=== PATIENT | female | born 1945 | race African-American/Black ===

== ENCOUNTER 2016-06-06 11:02 | Emergency (ER) | payer MEDICARE ==
[~2016-06-06] VITALS: Ht 152.4 cm; Wt 78.5 kg
[~2016-06-06 11:02] MED LIST: ALBU2.5V5 IH; CHOL10003 PO; HYDR-209 PO; LOSA50TA6 PO; METO100T11 PO; MULT-246 PO; RANI150T2 PO; SERT100T PO; tumeric; vit d PO
--- NOTE | 2016-06-06 12:23 | PHYS DOC ---
Past Medical History Past Medical History: Arthritis, COPD, Depression, GERD, Hypertension, Other Additional Past Medical Histor: Gout Past Surgical History: No Surgical History Alcohol Use: None Drug Use: None Adult General Chief Complaint Chief Complaint: SHORTNESS OF BREATH HPI HPI Patient is a 70 year old female who presents with shortness of breath and bilateral foot pain. Patient reports she has been having increasing shortness of breath over the past 3-4 weeks. She just Back from vacation to [place] and had run out of her breathing treatments while she was there. No chest discomfort. She also reports bilateral foot pain for the past 2 or 3 weeks, L> R. no trauma or other inciting event. She has taken hydrocodone and naproxen for pain with partial improvement. She also reports cough. No fever. No other acute complaints. Review of Systems Review of Systems Constitutional: Denies fever or chills Eyes: Denies change in visual acuity or eye pain HENT: Denies nasal congestion or sore throat Respiratory: Cough, shortness of breath Cardiovascular: Denies chest pain GI: Denies abdominal pain, nausea, vomiting, bloody stools or diarrhea : Denies dysuria or hematuria Musculoskeletal: B/l foot pain Integument: Denies rash or skin lesions Neurologic: Denies headache, focal weakness or sensory changes Current Medications Current Medications Current Medications Medications (Trade) Dose Ordered Sig/Hugo Start Time Stop Time Status Last Admin Dose Admin Albuterol/ Ipratropium (Duoneb) 6 ml 1X ONCE 06/06/16 12:30 06/06/16 12:31 DC 06/06/16 12:47 6 ML Prednisone (Prednisone) 60 mg 1X ONCE 06/06/16 12:30 06/06/16 12:31 DC 06/06/16 12:50 60 MG Allergies Allergies Allergies Coded Allergies Type Severity Reaction Last Updated Verified allopurinol Allergy Intermediate 06/06/16 Yes azithromycin Allergy Intermediate 03/15/16 Yes Physical Exam Physical Exam Constitutional: Well developed, well nourished, no acute distress, non-toxic appearance HENT: Normocephalic, atraumatic, bilateral external ears normal Eyes: EOMI, conjunctiva normal, no discharge Neck: Normal range of motion, no stridor Cardiovascular: Heart rate normal, regular rhythm, no murmur Lungs & Thorax: Tight, diffuse expiratory wheezing Abdomen: Bowel sounds normal, soft, non-distended, no TTP Skin: Warm, dry, no erythema, no rash Extremities: L foot mildly swollen compared to R, mildly warm to touch, no erythema; 2+ DP pulse, motor function and sensation to light touch fully intact Neurologic: Alert and oriented X 3, no gross deficits noted Current Patient Data Vital Signs Vital Signs Date Time Temp Pulse Resp B/P Pulse Ox O2 Delivery O2 Flow Rate FiO2 06/06/16 15:00 92 21 151/66 95 Nasal Cannula 3 06/06/16 11:20 98.3 98.3 Lab Values Laboratory Tests Test 06/06/16 11:35 White Blood Count 7.1x10^3/uL (4.0-11.0) Red Blood Count 4.22x10^6/uL (3.50-5.40) Hemoglobin 12.2g/dL (12.0-15.5) Hematocrit 38.4% (36.0-47.0) Mean Corpuscular Volume 91fL (79-100) Mean Corpuscular Hemoglobin 29pg (25-35) Mean Corpuscular Hemoglobin Concent 32g/dL (31-37) Red Cell Distribution Width 14.9% (11.5-14.5) H Platelet Count 178x10^3/uL (140-400) Neutrophils (%) (Auto) 60% (31-73) Lymphocytes (%) (Auto) 11% (24-48) L Monocytes (%) (Auto) 7% (0-9) Eosinophils (%) (Auto) 21% (0-3) H Basophils (%) (Auto) 1% (0-3) Neutrophils # (Auto) 4.3x10^3uL (1.8-7.7) Lymphocytes # (Auto) 0.7x10^3/uL (1.0-4.8) L Monocytes # (Auto) 0.5x10^3/uL (0.0-1.1) Eosinophils # (Auto) 1.5x10^3/uL (0.0-0.7) H Basophils # (Auto) 0.1x10^3/uL (0.0-0.2) Segmented Neutrophils % 58% (35-66) Band Neutrophils % 1% (0-9) Lymphocytes % 7% (24-48) L Monocytes % 11% (0-10) H Eosinophils % 23% (0-5) H Platelet Estimate Adequate (ADEQUATE) Sodium Level 145mmol/L (136-145) Potassium Level 4.4mmol/L (3.5-5.1) Chloride Level 109mmol/L (98-107) H Carbon Dioxide Level 29mmol/L (21-32) Anion Gap 7 (6-14) Blood Urea Nitrogen 17mg/dL (7-20) Creatinine 0.9mg/dL (0.6-1.0) Estimated GFR (Cockcroft-Gault) 74.7 Glucose Level 90mg/dL (70-99) Calcium Level 8.9mg/dL (8.5-10.1) Troponin I Quantitative < 0.017ng/mL (0.000-0.055) Laboratory Tests 06/06/16 11:35 Laboratory Tests 06/06/16 11:35 EKG EKG EKG (my read): Sinus rhythm, rate 65, borderline LAD, intervals wnl, no acute ischemic changes Radiology/Procedures Radiology/Procedures X-ray L foot: No acute or significant bony finding is seen. CXR: IMPRESSION: No acute or focal process. No significant change Course & Med Decision Making Course & Med Decision Making Pertinent Labs and Imaging studies reviewed. (See chart for details) Patient is 70-year-old female who presents with shortness of breath and bilateral foot pain. Shortness of breath apparent COPD exacerbation based on physical exam. Steroids and breathing treatments ordered. Suspect left foot pain is due to gout, as patient has history of this. Will obtain EKG, chest x- ray, left foot x-ray, labs to evaluate. Labs largely unremarkable. Troponin within normal limits. Discussed results with patient, who says she is feeling much better at this time. Her lung sounds have improved, although she did still has some faint wheezing. Discussed possible admission with patient; she is insistent upon going home. She already has a follow up appointment with Dr. Raymundo scheduled for tomorrow. I discussed my concerns, patient was still like to go home. As she has close follow-up already scheduled for tomorrow, we will send her home with strict return precautions. Patient agrees to return immediately if she gets any worse. Discharged with prescription for prednisone burst, Celebrex, [place] for pain. Dragon Disclaimer Dragon Disclaimer This electronic medical record was generated, in whole or in part, using a voice recognition dictation system. Departure Departure Impression: Primary Impression: COPD exacerbation Additional Impression: Foot pain, left Disposition: 01 HOME, SELF-CARE Condition: IMPROVED Referrals: MARIA A RAYMUNDO MD (PCP) Patient Instructions: Chronic Obstructive Pulmonary Disease Exacerbation, Gout Additional Instructions: Thank you for allowing us to provide care today in the Emergency Department. Take the provided medication as directed. Use caution after taking the pain medication as it can make you drowsy. Keep your follow up appointment with your primary care doctor tomorrow. Return immediately to the Emergency Department if you develop any new or concerning symptoms. Scripts Celecoxib (Celebrex)100 Mg [id number] Mg PO BID #14 CAP Ref 0 Prov:VEGA BURNHAM MD 06/06/16 Hydrocodone/Apap 5-325 ([place] 5-325 Tablet)1 Each Tablet1 Tab PO PRN Q6HRS PRN PAIN #20 TAB Ref 0 Prov:VEGA BURNHAM MD 06/06/16 Prednisone 20 Mg [id number] Mg PO DAILY 4 Days start taking on 06/07/16 Prov:VEGA BURNHAM MD 06/06/16 Problem Qualifiers VEGA BURNHAM MD Jun 06, 2016 12:23
[2016-06-06 12:30] LABS: BASO # 0.1 x10^3/uL (0.0-0.2); BASO % 1 % (0-3); EOS % 21 % (0-3); HEMATOCRIT 38.4 % (36.0-47.0); HEMOGLOBIN 12.2 g/dL (12.0-15.5); LYMPH # 0.7 x10^3/uL (1.0-4.8); LYMPH % 11 % (24-48); MEAN CORPUSCULAR HEMOGLOBIN 29 pg (25-35); MEAN CORPUSCULAR HGB CONC 32 g/dL (31-37); MEAN CORPUSCULAR VOLUME 91 fL (79-100); MONO % 7 % (0-9); NEUT % 60 % (31-73); PLATELET COUNT 178 x10^3/uL (140-400); RED BLOOD COUNT 4.22 x10^6/uL (3.50-5.40); RED CELL DISTRIBUTION WIDTH 14.9 % (11.5-14.5); WHITE BLOOD COUNT 7.1 x10^3/uL (4.0-11.0)
[2016-06-06] MEDS ORDERED: IPRATRPIUM/ALBUTEROL 0.5/2.5MG 3 ML NEBU. NEB ONE (12:30)
[2016-06-06] MEDS ORDERED: PREDNISONE 10 MG TABLET PO ONE (12:30)
[2016-06-06 12:42] LABS: CALCIUM 8.9 mg/dL (8.5-10.1); CREATININE 0.9 mg/dL (0.6-1.0); GFR 74.7; POTASSIUM 4.4 mmol/L (3.5-5.1)
--- NOTE | 2016-06-06 13:03 | EKG ---
[facility] [address] [place] [address] Test Date: 2016-06-06 Test Time: 12:54:16 Pat Name: LEELA ONEILL Department: Room: Gender: F Mill Work: : 1945 Requested By: VEGA BURNHAM Order Number: [id number] Reading MD: Leonarda Coleman Measurements Intervals [place] Rate: 74 P: 62 MO: 140 QRS: -3 QRSD: 74 T: 56 QT: 390 QTc: 438 Interpretive Statements SINUS RHYTHM LEFTWARD AXIS OTHERWISE NORMAL ECG RI6.01 Unconfirmed report Compared to ECG 07/11/2014 12:39:51 No significant changes Electronically Signed On 06-07-2016 9:48:57 TECHNICAL SOLUTIONS ENGINEER by Leonarda Coleman
--- NOTE | 2016-06-06 13:09 | RAD ---
Indication foot pain. No history of injury. AP and lateral views of the left foot were obtained and are compared to an examination 12/10/2015. No acute or significant bony finding is seen.
--- NOTE | 2016-06-06 13:11 | RAD ---
Indication shortness of breath. Difficulty breathing. A single view of the chest was obtained. Comparison is made to an exam 07/11/2014. Heart size is at the upper limits of normal. There is no gross congestive heart failure. Significant pleural fluid is not seen. There is no pneumothorax. Overall a significant change when compared to the previous exam is not seen. IMPRESSION: No acute or focal process. No significant change
[2016-06-06] MEDS ORDERED: HYDR-971 PO (14:42)
[2016-06-06] MEDS ORDERED: PRED20TA PO (14:42)
[2016-06-06] MEDS ORDERED: CELE100C PO (14:42)
[2016-06-06 15:00] VITALS: BP 151/66
[2016-06-06 15:13] LABS: % EOS 23 % (0-5)
[2016-06-06 15:15] LABS: PLT ESTIMATE ADEQUATE (ADEQUATE)
== END 2016-06-06 15:07 | disposition home or self-care (01) ==
LOC: ER 11:02
DX: J44.1 Chronic obstructive pulmonary disease with (acute) exacerbation (principal); M79.672 Pain in left foot; I10 Essential (primary) hypertension; K21.9 Gastro-esophageal reflux disease without esophagitis; M10.9 Gout, unspecified; Z88.1 Allergy status to other antibiotic agents; Z88.8 Allergy status to other drugs, medicaments and biological substances
CPT/HCPCS: 36415; 71010; 73620; 80048; 84484; 85007; 85027; 93005; 94640; 99285; J7512; J7620

== ENCOUNTER 2017-04-23 09:48 | Emergency (ER) | payer MEDICARE ==
[~2017-04-23] VITALS: Ht 152.4 cm; Wt 74.4 kg
[~2017-04-23 09:48] MED LIST changes: +CELE100C PO; +HYDR-971 PO; +METO-247 PO; -METO100T11 PO; +PRED20TA PO
[2017-04-23] MEDS ORDERED: IV NORMAL SALINE 1000ML BAG 1,000 ML IV SCH (10:09)
[2017-04-23] MEDS ORDERED: ONDANSETRON PF 4 MG/2 ML VIAL. IV ONE (10:15)
[2017-04-23 10:32] LABS: BASO # 0.1 x10^3/uL (0.0-0.2); BASO % 1 % (0-3); EOS % 4 % (0-3); HEMATOCRIT 38.5 % (36.0-47.0); HEMOGLOBIN 12.1 g/dL (12.0-15.5); LYMPH # 0.6 x10^3/uL (1.0-4.8); LYMPH % 5 % (24-48); MEAN CORPUSCULAR HEMOGLOBIN 27 pg (25-35); MEAN CORPUSCULAR HGB CONC 31 g/dL (31-37); MEAN CORPUSCULAR VOLUME 86 fL (79-100); MONO % 5 % (0-9); NEUT % 86 % (31-73); PLATELET COUNT 196 x10^3/uL (140-400); RED BLOOD COUNT 4.48 x10^6/uL (3.50-5.40); RED CELL DISTRIBUTION WIDTH 15.4 % (11.5-14.5)
[2017-04-23 10:49] LABS: PROTHROMBIN TIME PATIENT 12.9 SEC (11.7-14.0)
[2017-04-23 10:50] LABS: ANION GAP 8 (6-14); BLOOD UREA NITROGEN 14 mg/dL (7-20); CALCIUM 9.5 mg/dL (8.5-10.1); CARBON DIOXIDE 27 mmol/L (21-32); CHLORIDE 108 mmol/L (98-107); GFR 65.9; GLUCOSE 96 mg/dL (70-99); POTASSIUM 4.2 mmol/L (3.5-5.1); SODIUM 143 mmol/L (136-145)
[2017-04-23 10:54] LABS: ALBUMIN 3.5 g/dL (3.4-5.0); ALK PHOS 176 U/L (46-116); ALT (SGPT) 16 U/L (14-59); AST (SGOT) 21 U/L (15-37); CKMB MASS 0.9 ng/mL (0.0-3.6); DIRECT BILIRUBIN < 0.1 mg/dL (0.0-0.2); MAGNESIUM 1.8 mg/dL (1.8-2.4); TOTAL BILIRUBIN 0.2 mg/dL (0.2-1.0); TOTAL PROTEIN 7.9 g/dL (6.4-8.2)
[2017-04-23] MEDS ORDERED: IV NORMAL SALINE 1000ML BAG 1,000 ML IV ONE ×2 (11:15→11:30)
--- NOTE | 2017-04-23 11:19 | PHYS DOC ---
Past Medical History Past Medical History: Arthritis, COPD, Depression, GERD, Hypertension, Other Additional Past Medical Histor: Gout Past Surgical History: No Surgical History Alcohol Use: None Drug Use: None Adult General Chief Complaint Chief Complaint: NAUSEA/VOMITING/DIARRHA HPI HPI Patient is a 71 year old -Citizen Of [place] Citizen [place] female who presents with nausea vomiting diarrhea. She states she's had partially 10 nonbloody stools in addition to 5-6 episodes of vomiting. She denies any fevers chills she denies any abdominal pain. She states occasionally might cramp before she has or diarrhea. Family ate at a restaurant last night and this morning 3 of them started having nausea vomiting. 7 history COPD and at this point states she's not wheezing. Review of Systems Review of Systems Constitutional: Denies fever or chills [] Eyes: Denies change in visual acuity, redness, or eye pain [] HENT: Denies nasal congestion or sore throat [] Respiratory: Denies cough or shortness of breath [] Cardiovascular: No additional information not addressed in HPI [] GI: Denies abdominal pain, bloody stools, positive for nausea, vomiting, diarrhea [] : Denies dysuria or hematuria [] Musculoskeletal: Denies back pain or joint pain [] Integument: Denies rash or skin lesions [] Neurologic: Denies headache, focal weakness or sensory changes [] Endocrine: Denies polyuria or polydipsia [] All other systems were reviewed and found to be within normal limits, except as documented in this note. Current Medications Current Medications Current Medications Medications (Trade) Dose Ordered Sig/Hugo Start Time Stop Time Status Last Admin Dose Admin Ondansetron HCl (Zofran) 4 mg 1X ONCE 04/23/17 10:15 04/23/17 10:16 DC 04/23/17 10:26 4 MG Sodium Chloride 1,000 ml @ 1,000 mls/hr 1X ONCE 04/23/17 11:30 04/23/17 11:30 DC Allergies Allergies Allergies Coded Allergies Type Severity Reaction Last Updated Verified allopurinol Allergy Intermediate 06/06/16 Yes azithromycin Allergy Intermediate 03/15/16 Yes Physical Exam Physical Exam Constitutional: Well developed, well nourished, no acute distress, non-toxic appearance. [] HENT: Normocephalic, atraumatic, bilateral external ears normal, oropharynx moist, no oral exudates, nose normal. [] Eyes: PERRLA, EOMI, conjunctiva normal, no discharge. [] Neck: Normal range of motion, no tenderness, supple, no stridor. [] Cardiovascular:Heart rate regular rhythm, no murmur [] Lungs & Thorax: Bilateral breath sounds clear to auscultation [] Abdomen: Bowel sounds normal, soft, no tenderness, no masses, no pulsatile masses. [] Skin: Warm, dry, no erythema, no rash. [] Back: No tenderness, no CVA tenderness. [] Extremities: No tenderness, no cyanosis, no clubbing, ROM intact, no edema. [] Neurologic: Alert and oriented X 3, normal motor function, normal sensory function, no focal deficits noted. [] Psychologic: Affect normal, judgement normal, mood normal. [] Current Patient Data Vital Signs Vital Signs Date Time Temp Pulse Resp B/P (MAP) Pulse Ox O2 Delivery O2 Flow Rate FiO2 04/23/17 13:30 102 15 155/61 (92) Nasal Cannula 4.0 04/23/17 10:02 97.9 96 97.9 Lab Values Laboratory Tests Test 04/23/17 10:16 04/23/17 11:41 White Blood Count 11.0 x10^3/uL (4.0-11.0) Red Blood Count 4.48 x10^6/uL (3.50-5.40) Hemoglobin 12.1 g/dL (12.0-15.5) Hematocrit 38.5 % (36.0-47.0) Mean Corpuscular Volume 86 fL (79-100) Mean Corpuscular Hemoglobin 27 pg (25-35) Mean Corpuscular Hemoglobin Concent 31 g/dL (31-37) Red Cell Distribution Width 15.4 % (11.5-14.5) H Platelet Count 196 x10^3/uL (140-400) Neutrophils (%) (Auto) 86 % (31-73) H Lymphocytes (%) (Auto) 5 % (24-48) L Monocytes (%) (Auto) 5 % (0-9) Eosinophils (%) (Auto) 4 % (0-3) H Basophils (%) (Auto) 1 % (0-3) Neutrophils # (Auto) 9.5 x10^3uL (1.8-7.7) H Lymphocytes # (Auto) 0.6 x10^3/uL (1.0-4.8) L Monocytes # (Auto) 0.6 x10^3/uL (0.0-1.1) Eosinophils # (Auto) 0.4 x10^3/uL (0.0-0.7) Basophils # (Auto) 0.1 x10^3/uL (0.0-0.2) Segmented Neutrophils % 86 % (35-66) H Band Neutrophils % 2 % (0-9) Lymphocytes % 6 % (24-48) L Atypical Lymphocytes % (Manual) 1 % (0-0) H Monocytes % 4 % (0-10) Eosinophils % 1 % (0-5) Platelet Estimate Adequate (ADEQUATE) Prothrombin Time 12.9 SEC (11.7-14.0) Prothrombin Time INR 1.0 (0.8-1.1) Sodium Level 143 mmol/L (136-145) Potassium Level 4.2 mmol/L (3.5-5.1) Chloride Level 108 mmol/L (98-107) H Carbon Dioxide Level 27 mmol/L (21-32) Anion Gap 8 (6-14) Blood Urea Nitrogen 14 mg/dL (7-20) Creatinine 1.0 mg/dL (0.6-1.0) Estimated GFR (Cockcroft-Gault) 65.9 Glucose Level 96 mg/dL (70-99) Calcium Level 9.5 mg/dL (8.5-10.1) Magnesium Level 1.8 mg/dL (1.8-2.4) Total Bilirubin 0.2 mg/dL (0.2-1.0) Direct Bilirubin < 0.1 mg/dL (0.0-0.2) Aspartate Amino Transferase (AST) 21 U/L (15-37) Alanine Aminotransferase (ALT) 16 U/L (14-59) Alkaline Phosphatase 176 U/L (46-116) H Creatine Kinase 80 U/L (26-192) Creatine Kinase MB (Mass) 0.9 ng/mL (0.0-3.6) Creatine Kinase MB Relative Index 1.1 % (0-4) Troponin I Quantitative < 0.017 ng/mL (0.000-0.055) EH-Fce-Q-Type Natriuretic Peptide 345 pg/mL (0-124) H Total Protein 7.9 g/dL (6.4-8.2) Albumin 3.5 g/dL (3.4-5.0) Lipase 134 U/L (73-393) Urine Collection Type Unknown Urine Color Yellow Urine Clarity Clear Urine pH 6.0 Urine Specific [place] 1.015 Urine Protein Negative mg/dL (NEG-TRACE) Urine Glucose (UA) Negative mg/dL (NEG) Urine Ketones (Stick) Negative mg/dL (NEG) Urine Blood Negative (NEG) Urine Nitrite Negative (NEG) Urine Bilirubin Negative (NEG) Urine Urobilinogen Dipstick 0.2 mg/dL (0.2 mg/dL) Urine Leukocyte Esterase Trace (NEG) Urine RBC 0 /HPF (0-2) Urine WBC 0 /HPF (0-4) Urine Squamous Epithelial Cells Few /LPF Urine Bacteria 0 /HPF (0-FEW) Laboratory Tests 04/23/17 10:16 Laboratory Tests 04/23/17 10:16 EKG EKG [] Radiology/Procedures Radiology/Procedures [] Course & Med Decision Making Course & Med Decision Making Pertinent Labs and Imaging studies reviewed. (See chart for details) Patient presents with nausea vomiting diarrhea. She received 2 L of fluids and remained tachycardic. I recommend that she be admitted the hospital but she states she does not want to be admitted. She signed out AGAINST MEDICAL ADVICE. Dragon Disclaimer Dragon Disclaimer This electronic medical record was generated, in whole or in part, using a voice recognition dictation system. Departure Departure Impression: Primary Impression: Nausea vomiting and diarrhea Disposition: AGAINST MEDICAL ADVICE Condition: STABLE Referrals: MARIA A RAYMUNDO MD (PCP) Patient Instructions: Viral Gastroenteritis Additional Instructions: You were seen today for nausea vomiting and diarrhea. Your heart rate was elevated and you were given IV fluids. Her heart rate stayed elevated. I recommend that you be admitted to the hospital but you do not want to be admitted and wanted be discharged home. He have signed out AGAINST MEDICAL ADVICE. You should follow-up with her primary care physician within the next 24- 48 hours. Return back to ER if you change her mind, if you have increasing shortness of breath, uncontrolled nausea vomiting, bloody stools or other concerns. AFRICA DUNN MD Apr 23, 2017 11:19
[2017-04-23 11:34] LABS: % EOS 1 % (0-5); PLT ESTIMATE ADEQUATE (ADEQUATE)
[2017-04-23 11:52] LABS: BILIRUBIN,URINE NEGATIVE (NEG); GLUCOSE,URINE NEGATIVE (NEG); NITRITE,URINE NEGATIVE (NEG); PROTEIN,URINE NEGATIVE (NEG-TRACE); UROBILINOGEN,URINE 0.2 mg/dL (0.2 mg/dL)
[2017-04-23 11:58] LABS: BACTERIA,URINE 0 /HPF (0-FEW); RBC,URINE 0 /HPF (0-2); SQUAMOUS EPITHELIAL CELL,UR FEW /LPF; WBC,URINE 0 /HPF (0-4)
[2017-04-23 13:30] VITALS: BP 155/61
--- NOTE | 2017-04-23 14:04 | EKG ---
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 RI6.01 Compared to ECG 06/06/2016 12:54:16 No significant changes Electronically Signed On 04-28-2017 16:14:33 [employer]EWABLE [employer] DIVISION MANAGER by Isaias Diaz
== END 2017-04-23 13:53 | disposition left against medical advice (07) ==
LOC: ER 09:48
DX: R11.2 Nausea with vomiting, unspecified (principal); R19.7 Diarrhea, unspecified; K21.9 Gastro-esophageal reflux disease without esophagitis; J44.9 Chronic obstructive pulmonary disease, unspecified; I10 Essential (primary) hypertension; M10.9 Gout, unspecified; Z88.1 Allergy status to other antibiotic agents; Z88.8 Allergy status to other drugs, medicaments and biological substances
CPT/HCPCS: 36415; 80048; 80076; 81001; 82553; 83690; 83735; 83880; 84484; 85007; 85025; 85610; 87086; 93005; 96361; 96374; 99285; J2405; J7030

== ENCOUNTER → 2018-09-05 | Outpatient (CLI) | payer OTHER ==
[2018-06-24 11:35] VITALS: BP 158/74
[~2018-09-05] MED LIST changes: +CEFD300C PO; +HYDR-3164 PO; -HYDR-971 PO; +IPRA3AMP29 NEB; +LOSA-73 PO; -LOSA50TA6 PO
--- NOTE | 2018-09-05 13:53 | KCIC ---
EXAM: Chest, 2 views. HISTORY: Shortness of air. COMPARISON: 06/20/2018 and 11/29/2016 FINDINGS: 2 views of the chest are obtained. There is persistent focal opacity within the lateral left upper lobe. There is no consolidation, pleural effusion or pneumothorax. The heart is normal in size. There is suspected basilar atelectasis and there are chronic appearing coarse interstitial changes. IMPRESSION: 1. Persistent focal opacity within the lateral left upper lobe. The interval decrease in the size of this lesion compared to a study dated 11/29/2016 favors postinfectious or postinflammatory scarring. 2. Emphysema with superimposed chronic coarse interstitial changes primarily within the lower lobes. 3. Basilar atelectasis. Electronically signed by: Marlee Johnson MD (09/05/2018 1:50 PM) [place] [id number]
== END | disposition home or self-care (01) ==
LOC: KCIC 13:09
PROVIDERS: ATTEND Family Medicine
DX: J43.8 Other emphysema (principal); J98.11 Atelectasis; R91.8 Other nonspecific abnormal finding of lung field
CPT/HCPCS: 71046